=== PATIENT | male | born 1995 | race Caucasian/White ===

== ENCOUNTER 2023-04-01 19:54 | Emergency (ER) | payer OTHER ==
[2023-04-01] MEDS ORDERED: methylPREDNISolone Sodium Succinate 125 MG/2 ML SDV IM ONE (20:43)
[2023-04-01] MEDS ORDERED: methylPREDNISolone Sodium Succinate 125 MG/2 ML SDV ONE (20:44)
== END 2023-04-01 21:40 | disposition home or self-care (01) ==
LOC: LB.ED 19:54
DX: L23.9 Allergic contact dermatitis, unspecified cause (principal); Z87.891 Personal history of nicotine dependence
CPT/HCPCS: 96372; 99282; J2930

== ENCOUNTER 2023-04-02 12:23 | Emergency (ER) | payer OTHER ==
[2023-04-02] MEDS ORDERED: methylPREDNISolone Sodium Succinate 125 MG/2 ML SDV IM ONE (12:34)
[2023-04-02] MEDS ORDERED: methylPREDNISolone Sodium Succinate 125 MG/2 ML SDV ONE (13:31)
== END 2023-04-02 15:21 | disposition home or self-care (01) ==
LOC: LB.ED 12:23
DX: L24.7 Irritant contact dermatitis due to plants, except food (principal)
CPT/HCPCS: 87430; 96372; 99283; J2930